=== PATIENT | male | born 1975 | race Caucasian/White ===

== ENCOUNTER 2018-11-05 04:18 | Emergency (ER) | payer OTHER ==
[2018-11-05 04:18] VITALS: BMI 27.3
--- NOTE | 2018-11-05 05:36 | ED PDOC ---
HPI: Psych/Substance Abuse Time Seen by Provider: 11/05/18 04:48 Chief Complaint (Nursing): Alcohol Ingestion Chief Complaint (Provider): Alcohol Ingestion ED Caveat: Intoxicated Modifying Factor(s): Alcohol Additional Complaint(s): 43 year old male was brought to the ED for alcohol intoxication. [place] He has slurred speech and denies any medical complaints. PMD: unknown Past Medical History Reviewed: Historical Data, Nursing Documentation, Vital Signs Vital Signs: Last Vital Signs Temp 98.3 F 11/05/18 04:38 Pulse 71 11/05/18 04:38 Resp 18 11/05/18 04:38 BP 156/106 H 11/05/18 04:38 Pulse Ox 99 11/05/18 04:38 Primary Care Provider: FAMILY PROVIDER,NO - Medical History PMH: No Chronic Diseases Denies: Depression - Family History Family History: States: Unknown Family Hx - Home Medications Home Medications: Ambulatory Orders Medication Instructions Recorded Loratadine [Claritin] 10 mg PO DAILY 08/14/13 Naproxen [Naprosyn] 500 mg PO BID PRN #30 tab 08/14/13 - Allergies Allergies/Adverse Reactions: Allergies Allergy/AdvReac Type Severity Reaction Status Date / Time No Known Allergies Allergy Verified 04/24/12 11:08 Review of Systems Review Of Systems: ROS cannot be obtained secondary to pt's inabilty to answer questions. Physical Exam - Reviewed Nursing Documentation Reviewed: Yes Vital Signs Reviewed: Yes - Physical Exam Appears: Positive for: Well, Non-toxic, No Acute Distress Head Exam: Positive for: ATRAUMATIC, NORMAL INSPECTION, NORMOCEPHALIC Skin: Positive for: Normal Color, Warm, Dry. Negative for: Rash Eye Exam: Positive for: EOMI, Normal appearance, PERRL ENT: Positive for: Normal ENT Inspection Neck: Positive for: Normal, Painless ROM, Supple. Negative for: Decreased ROM Cardiovascular/Chest: Positive for: Regular Rate, Rhythm. Negative for: Murmur Respiratory: Positive for: Normal Breath Sounds. Negative for: Respiratory Distress Gastrointestinal/Abdominal: Positive for: Normal Exam, Soft. Negative for: Tenderness Back: Positive for: Normal Inspection Extremity: Positive for: Normal ROM. Negative for: Tenderness, Pedal Edema, Deformity Neurological/Psych: Positive for: Awake, Alert, Normal Tone, Oriented (oriented to person ), Other (slurred speech ) - ECG O2 Sat by Pulse Oximetry: 99 (RA) Pulse Ox Interpretation: Normal Medical Decision Making Medical Decision Making: Time: 448 Impression: 43yo male with alcohol intoxication Plan: Alcohol serum Accucheck Patient signed out to Dr Neves at 7AM pending sobriety and re-eval Scribe Attestation: Documented by Maxim Sheriff, acting as a scribe for Aurelio Clark MD Provider Scribe Attestation: All medical record entries made by the Scribe were at my direction and personally dictated by me. I have reviewed the chart and agree that the record accurately reflects my personal performance of the history, physical exam, medical decision making, and the department course for this patient. I have also personally directed, reviewed, and agree with the discharge instructions and disposition. Disposition - Clinical Impression Clinical Impression: Alcohol abuse - Disposition Referrals: [facility] [Outside] Disposition: Transfer of Care Disposition Time: 07:00 Condition: FAIR Instructions: Alcohol Use - When Is Drinking a Problem? Forms: [employer] ([place] Islander)
[2018-11-05 08:03] VITALS: RESP 20
--- NOTE | 2018-11-05 08:22 | ED PDOC ---
- ECG O2 Sat by Pulse Oximetry: 98 - Progress Re-evaluation Time: 08:20 Condition: Re-examined (Awake alert oriented x 3 no focal neuro deficits) Disposition - Clinical Impression Clinical Impression: Alcohol abuse - POA Present On Arrival: None - Disposition Referrals: [facility] [Outside] Disposition: Routine/Home Disposition Time: 08:21 Condition: FAIR Instructions: Alcohol Use - When Is Drinking a Problem? Forms: [employer] (Nepalese)
[2018-11-05 08:49] VITALS: BP 110/78; PULSE 78; TEMP 97.6
[2018-11-06 02:43] VITALS: O2SAT 99
== END 2018-11-05 09:10 | disposition home or self-care (01) ==
LOC: H.ER 04:18
DX: F10.129 Alcohol abuse with intoxication, unspecified (principal)